=== PATIENT | male | born 1945 | race Caucasian/White ===

== ENCOUNTER 2017-04-11 08:34 | Observation (INO) | payer MEDICARE, OTHER ==
[2017-04-10 11:13] LABS: BLOOD UREA NITROGEN 11 mg/dL (7-18)
[2017-04-10 11:16] LABS: ASPARTATE AMINO TRANSFERASE 16 U/L (15-37)
[~2017-04-11] VITALS: Ht 188 cm; Wt 114.6 kg
[~2017-04-11 08:34] MED LIST: AMIO100T4 PO; ANTI1CAP PO; CARV6.252 PO; MULT1TAB18 PO; OMEG1CAP12 PO; RIVA20TA PO; SAW500CA PO; SIMV20TA3 PO; UBIQ100C PO
[2017-04-11] MEDS ORDERED: SODIUM CHLORIDE 0.9% 1,000 ML IV SCH (10:00)
[2017-04-11] MEDS ORDERED: MIDAZOLAM 1 MG/ML, 5ML ONE (11:13)
[2017-04-11] MEDS ORDERED: FENTANYL PF 250 MCG/5ML ONE ×2 (11:13→12:09)
[2017-04-11] MEDS ORDERED: SUCCINYLCHOLINE 20 MG/ML, 10ML ONE (11:20)
[2017-04-11] MEDS ORDERED: DEXAMETHASONE 4 MG/ML, 1ML ONE (11:20)
[2017-04-11] MEDS ORDERED: PROPOFOL 10 MG/ML, 20ML ONE (11:20)
[2017-04-11] MEDS ORDERED: ONDANSETRON 2MG/ML, 2ML ONE (11:20)
[2017-04-11] MEDS ORDERED: PROTAMINE SULFATE 10 MG/ML, 5ML ONE (11:33)
[2017-04-11] MEDS ORDERED: LIDOCAINE 2%, 20ML ONE (11:33)
[2017-04-11] MEDS ORDERED: HEPARIN 1,000 UNITS/ML, 10ML ONE (11:33)
[2017-04-11] MEDS ORDERED: ZOLPIDEM 5MG TABLET PO PRN (14:00)
[2017-04-11] MEDS ORDERED: ONDANSETRON 2MG/ML, 2ML IVPush PRN (14:00)
[2017-04-11] MEDS ORDERED: MIDAZOLAM 1 MG/ML, 2ML IV PRN (14:00)
[2017-04-11] MEDS ORDERED: ACETAMINOPHEN 325 MG TABLET PO PRN ×2 (14:00)
[2017-04-11] MEDS ORDERED: OXYcodone 5 MG/5 ML ORAL.SOL UDC PO PRN (14:00)
[2017-04-11] MEDS ORDERED: FENTANYL PF 100 MCG/2ML IV PRN (14:00)
[2017-04-11] MEDS ORDERED: HYDROmorphone 1 MG/ML, 1ML IV PRN (14:00)
[2017-04-11 15:36] VITALS: BP 113/78
[2017-04-11 18:59] VITALS: BP 131/86
[2017-04-11] MEDS: CARVEDILOL 3.125 MG TABLET PO SCH (20:50)
[2017-04-11] MEDS ORDERED: SAW PALMETTO PO SCH (21:00)
[2017-04-11] MEDS ORDERED: SIMVASTATIN 20 MG TABLET PO SCH (21:00)
[2017-04-12 01:13] VITALS: BP 115/67
[2017-04-12 07:03] VITALS: BP 106/65
[2017-04-12] MEDS ORDERED: SIMV20TA3 PO (08:57)
[2017-04-12] MEDS ORDERED: ANTIOX PO SCH (09:00)
[2017-04-12] MEDS ORDERED: LUT PO SCH (09:00)
[2017-04-12] MEDS ORDERED: DHA PO SCH (09:00)
[2017-04-12] MEDS ORDERED: [UNRECOGNIZED DRUG - OTHER] PO SCH (09:00)
[2017-04-12] MEDS ORDERED: EPA PO SCH (09:00)
[2017-04-12] MEDS ORDERED: OMEGA-3/FISH OIL CAPSULE PO SCH (09:00)
[2017-04-12] MEDS ORDERED: UBIQUINOL 100 MG PO SCH (09:00)
[2017-04-12] MEDS ORDERED: AMIODARONE 200 MG TABLET PO SCH (09:00)
[2017-04-12] MEDS ORDERED: ZEAX PO SCH (09:00)
[2017-04-12] MEDS: CARVEDILOL 3.125 MG TABLET PO SCH (09:00)
[2017-04-12] MEDS ORDERED: RIVAROXABAN 20 MG TABLET PO SCH (09:00)
== END 2017-04-12 12:40 | disposition home or self-care (01) ==
LOC: CACL 08:34 → ORIP 13:32 → 5SO 15:20 → DCLOUNGE 04-12 12:25
PROVIDERS: ADMIT Internal Medicine Cardiovascular Disease; ATTEND Internal Medicine Cardiovascular Disease
DX: I48.91 Unspecified atrial fibrillation (principal); I48.92 Unspecified atrial flutter
CPT/HCPCS: 36415; 71020; 80053; 85025; 85347; 85610; 85730; 93005; 93306; 93613; 93655; 93656; 93662; C1730; C1731; C1732; C1759; C1766; C1894; G0378; J0330; J1100; J1644; J2250; J2405; J2704; J2720; J3010; J3490

== ENCOUNTER 2017-05-18 10:19 | Day surgery (SDC) | payer MEDICARE, OTHER ==
[2017-05-17 10:05] VITALS: BP 130/92
[2017-05-17 10:53] LABS: ASPARTATE AMINO TRANSFERASE 24 U/L (15-37); BLOOD UREA NITROGEN 11 mg/dL (7-18)
[~2017-05-18] VITALS: Ht 188 cm; Wt 113.6 kg
[~2017-05-18 10:19] MED LIST changes: -OMEG1CAP12 PO; +OMEG1CAP23 PO
== END 2017-05-18 12:12 ==
LOC: CACL 10:19 → EDBD 12:30
PROVIDERS: ATTEND Internal Medicine Cardiovascular Disease
DX: I48.2 Chronic atrial fibrillation (principal); I10 Essential (primary) hypertension; Z88.8 Allergy status to other drugs, medicaments and biological substances
CPT/HCPCS: 36415; 71020; 80053; 85025; 85610; 92960; 93005

== ENCOUNTER 2021-06-02 08:02 | Day surgery (SDC) | payer MEDICARE, OTHER ==
[~2021-06-02] VITALS: Ht 188 cm; Wt 110.0 kg
[~2021-06-02 08:02] MED LIST changes: -MULT1TAB18 PO; +MULT1TAB19 PO; +SIMV20TA19 PO; -SIMV20TA3 PO; -UBIQ100C PO; +UBIQ100C2 PO
[2021-06-02] MEDS ORDERED: UBID100C41 PO (08:55)
[2021-06-02] MEDS ORDERED: SIMV20TA19 PO (08:55)
[2021-06-02] MEDS ORDERED: CHOL10003 PO (08:55)
[2021-06-02] MEDS ORDERED: APIX5TAB PO (08:55)
[2021-06-02] MEDS ORDERED: SODIUM CHLORIDE 0.9% 1,000 ML IV ONE (09:00)
[2021-06-02] MEDS ORDERED: PROPOFOL 10 MG/ML, 20ML ONE (10:53)
== END 2021-06-02 12:13 | disposition home or self-care (01) ==
LOC: CACL 08:02
PROVIDERS: ATTEND Internal Medicine Clinical Cardiac Electrophysiology
DX: I34.0 Nonrheumatic mitral (valve) insufficiency (principal); I48.19 Other persistent atrial fibrillation; I10 Essential (primary) hypertension; E78.5 Hyperlipidemia, unspecified; J44.9 Chronic obstructive pulmonary disease, unspecified; E66.3 Overweight; Z20.822 Contact with and (suspected) exposure to COVID-19; Z68.31 Body mass index [BMI] 31.0-31.9, adult; Z79.01 Long term (current) use of anticoagulants; Z79.899 Other long term (current) drug therapy; Z88.8 Allergy status to other drugs, medicaments and biological substances
CPT/HCPCS: 87635; 92960; 93005; 93312; 93321; 93325; J2704